=== PATIENT | male | born 1970 | race Two or more races ===

== ENCOUNTER 2020-09-07 11:30 | Emergency (ER) | payer OTHER ==
[~2020-09-07] VITALS: Ht 177.8 cm; Wt 86.2 kg
== END 2020-09-07 14:33 | disposition home or self-care (01) ==
LOC: ER 11:30
DX: S51.821A Laceration with foreign body of right forearm, initial encounter (principal); W45.8XXA Other foreign body or object entering through skin, initial encounter; Y93.89 Activity, other specified; Y92.89 Other specified places as the place of occurrence of the external cause; Y99.8 Other external cause status

== ENCOUNTER → 2020-09-14 | Emergency (ER) | payer OTHER ==
[~2020-09-14] VITALS: Ht 177.8 cm; Wt 81.6 kg
== END | disposition left against medical advice (07) ==
LOC: ER 08:12
DX: Z53.20 Procedure and treatment not carried out because of patient's decision for unspecified reasons (principal)

== ENCOUNTER 2021-12-11 13:25 | Emergency (ER) | payer OTHER ==
[~2021-12-11] VITALS: Ht 177.8 cm; Wt 81.6 kg
== END 2021-12-11 16:20 | disposition home or self-care (01) ==
LOC: ER 13:25
DX: M25.561 Pain in right knee (principal)

== ENCOUNTER → 2024-12-27 | Emergency (ER) | payer OTHER ==
[~2024-12-27] VITALS: Ht 177.8 cm; Wt 83.9 kg
[~2024-12-27] MED LIST: CLINDAMYCIN PHOSPHATE 150 MG/ML (600mg) IM ONE
== END | disposition home or self-care (01) ==
LOC: ER 14:46
DX: S68.110A Complete traumatic metacarpophalangeal amputation of right index finger, initial encounter (principal); W45.8XXA Other foreign body or object entering through skin, initial encounter; Y93.89 Activity, other specified; Y92.89 Other specified places as the place of occurrence of the external cause